=== PATIENT | female | born 1985 | race Caucasian/White ===

== ENCOUNTER 2022-04-05 22:43 | Inpatient (IN) | payer OTHER ==
[~2022-04-05] VITALS: Ht 165.1 cm; Wt 92.5 kg
[~2022-04-05 22:43] MED LIST: CITRANATAL B-C1 EAC1 PO; FOLIC ACID1 MG PO; KEPPRA1000 MG PO
[2022-04-05] MEDS ORDERED: TOPAMAX50 MG PO (23:26)
== END 2022-04-08 13:25 | disposition home or self-care (01) | DRG 785 ==
LOC: OB/GYN 22:43 → LDR 22:43 → OB/GYN 04-06 02:46
PROVIDERS: ADMIT Obstetrics & Gynecology; ATTEND Obstetrics & Gynecology
PROC: 4A1HXCZ Monitoring of Products of Conception, Cardiac Rate, External Approach (ICD-10-PCS; 2022-04-05)
PROC: 0UB70ZZ Excision of Bilateral Fallopian Tubes, Open Approach (ICD-10-PCS; 2022-04-06)
PROC: 10D00Z1 Extraction of Products of Conception, Low, Open Approach (ICD-10-PCS; principal; 2022-04-06 07:15)
DX: O34.211 Maternal care for low transverse scar from previous cesarean delivery (principal); Z3A.37 37 weeks gestation of pregnancy; Z37.0 Single live birth; Z30.2 Encounter for sterilization; Z20.822 Contact with and (suspected) exposure to COVID-19

== ENCOUNTER 2022-04-15 10:12 | Emergency (ER) | payer OTHER ==
[~2022-04-15] VITALS: Ht 165.1 cm; Wt 84.8 kg
[~2022-04-15 10:12] MED LIST changes: +TOPAMAX50 MG PO
== END 2022-04-15 17:05 | disposition home or self-care (01) ==
LOC: ER 10:12
DX: T81.49XA Infection following a procedure, other surgical site, initial encounter (principal); Z98.891 History of uterine scar from previous surgery

== ENCOUNTER 2023-11-21 08:24 | Emergency (ER) | payer OTHER ==
[~2023-11-21] VITALS: Ht 165.1 cm; Wt 97.5 kg
[2023-11-21] MEDS ORDERED: NEOMYCIN/POLYMYXIN B/HYDROCORT 20 DR/ML BOTTLE OT STA (08:59)
== END 2023-11-21 09:09 | disposition home or self-care (01) ==
LOC: ER 08:24
DX: H60.91 Unspecified otitis externa, right ear (principal)